=== PATIENT | male | born 1935 | race Caucasian/White ===

== ENCOUNTER 2018-10-05 17:34 | Emergency (ER) | payer OTHER ==
[~2018-10-05] VITALS: Ht 193 cm; Wt 94.3 kg
[~2018-10-05 17:34] MED LIST: ASPI325B; ASPI500; ATOR10; ATOR40TA; CLOP75; FISH1000; IBUP200; LISI10; LISI20; OMEP20ER PO; RAMI2.5; VYTORIN; [UNRECOGNIZED DRUG - OTHER]
== END 2018-10-05 17:50 | disposition home or self-care (01) ==
LOC: ER 17:34
DX: M67.431 Ganglion, right wrist (principal); Z88.5 Allergy status to narcotic agent; Z79.02 Long term (current) use of antithrombotics/antiplatelets; Z79.82 Long term (current) use of aspirin; Z79.899 Other long term (current) drug therapy
CPT/HCPCS: 99282

== ENCOUNTER → 2018-10-22 | Outpatient (CLI) | payer OTHER | END | disposition home or self-care (01) | LOC: LAB EV 16:33 → LAB SHORT 16:33 | DX: M25.531 Pain in right wrist (principal) | CPT/HCPCS: 87070; 87075; 87205 ==

== ENCOUNTER 2020-11-04 11:49 | Inpatient (IN) | payer OTHER ==
[~2020-11-04] VITALS: Ht 190.5 cm; Wt 87.5 kg
[~2020-11-04 11:49] MED LIST changes: -ASPI325B; +ASPIR 8181 M1 PO; +FISH OIL 1,0001 EAC9 PO; -FISH1000
[2020-11-04] MEDS ORDERED: Zocor40 MG PO (11:59)
[2020-11-04] MEDS ORDERED: DOXA2 PO (12:00)
[2020-11-04] MEDS ORDERED: FINA5 PO ×2 (12:00→18:33)
[2020-11-04] MEDS ORDERED: PRED20 PO ×2 (12:00→18:33)
[2020-11-04] MEDS ORDERED: AZIT500 PO ×2 (12:01→18:32)
[2020-11-04 12:44] LABS: Hematocrit 37.2 % (37.0-53.0); Hemoglobin 12.5 g/dL (13.5-17.5); Mean Corpuscular HGB Conc 33.6 g/dL (31.5-36.5); Mean Corpuscular Volume 89 fL (80-100); RDW Coefficient Variation 14.2 % (11.7-14.2); RDW Standard Deviation 46.1 fL (35.1-46.3); Red Blood Cell Count 4.16 M/mm3 (4.30-5.90); White Blood Cell Count 9.89 K/mm3 (4.00-11.30)
[2020-11-04 12:48] LABS: Alanine Aminotransfer (ALT/SGP 24 U/L (12-78); Albumin, Blood 2.5 g/dL (3.4-5.0); Albumin/Globulin Ratio 0.7 (0.8-1.8); Alk Phos 64 U/L (50-136); Anion Gap 7 mmol/L (6-16); Aspartate Aminotrans (AST/SGOT 45 U/L (12-37); Blood Urea Nitrogen 21 mg/dL (8-24); CO2, Blood 25 mmol/L (21-32); Calcium, Blood 8.6 mg/dL (8.5-10.1); Chloride, Blood 109 mmol/L (98-108); Creatinine, Blood 0.75 mg/dL (0.60-1.20); Globulin, Blood 3.8 g/dL (2.2-4.0); Glomerular Filtration Rate >60 (60-); Glucose, Blood 97 mg/dL (70-99); Sodium, Blood 141 mmol/L (136-145); Total Protein, Blood 6.3 g/dL (6.4-8.2); Troponin I <0.015 ng/mL (0.000-0.040)
[2020-11-04 12:58] LABS: Mean Platelet Volume 10.3 fL (9.1-12.4); Platelet Count 200 K/mm3 (150-400)
[2020-11-04 13:19] LABS: BAND PERCENT MAN 1 % (0-8); BASOPHILS PERCENT MAN 0 % (0-2); EOSINOPHILS PERCENT MAN 0 % (0-6); LYMPHOCYTES ABSOLUTE MAN 0.19 K/mm3 (0.84-5.20); LYMPHOCYTES PERCENT MAN 2 % (21-46); MONOCYTES ABSOLUTE MAN 0.29 K/mm3 (0.16-1.47); MONOCYTES PERCENT MAN 3 % (4-13); NEUTROPHILS ABSOLUTE MAN 9.39 K/mm3 (1.96-9.15); SEG NEUTROPHILS PERCENT MAN 94 % (41-73); TOTAL CELLS COUNTED 100
[2020-11-04] MEDS ORDERED: DOXAZOSIN MESYLA2 MG PO (15:08)
[2020-11-04] MEDS ORDERED: Simvastatin40 MG PO (15:08)
[2020-11-04] MEDS ORDERED: Zithromax Tri-500 MG (15:14)
[2020-11-04 15:26] LABS: Source, Urine Voided
[2020-11-04 15:29] LABS: Appearance, Urine Clear (Clear); Bilirubin, Urine Neg (Neg); Blood, Urine 3+ (Neg); Color, Urine Amber (P-Yellow); Glucose Qualitative, Urine Neg (Neg); Ketones, Urine Neg (Neg); Leukocyte Esterase, Urine Neg (Neg); Nitrite, Urine Neg (Neg); Protein, Urine 2+ (Neg); Urobilinogen, Urine NORM (Normal); pH, Urine 6.5 (5.0-8.0)
[2020-11-04 15:48] LABS: Bacteria Few /hpf; Squamous Epithelial Cells Few /hpf (Few)
[2020-11-04 15:49] LABS: Mucus Light (0-Heavy)
--- NOTE | 2020-11-04 18:35 | NUR ---
PT IS LYING IN BED SAT 93% ON 4L 02. EXTREMELY [place]. USES WHITEBOARD AND POINTING TO COMMUNICATE, MAY ASK TO TRY AND READ LIPS. DENIES PAIN. WILL CONT. TO MONITOR FOR REMAINDER OF SHIFT.
[2020-11-04 18:52] LABS: Percent Saturation 8.3 % (20.0-50.0)
[2020-11-05 05:39] LABS: BASOPHILS ABSOLUTE AUTO 0.01 K/mm3 (0.00-0.23); BASOPHILS PERCENT AUTO 0 % (0-2); EOSINOPHILS ABSOLUTE AUTO 0.01 K/mm3 (0.00-0.68); EOSINOPHILS PERCENT AUTO 0 % (0-6); Hematocrit 34.4 % (37.0-53.0); Hemoglobin 11.3 g/dL (13.5-17.5); Mean Corpuscular HGB Conc 32.8 g/dL (31.5-36.5); Mean Corpuscular Volume 91 fL (80-100); RDW Coefficient Variation 14.2 % (11.7-14.2); RDW Standard Deviation 47.8 fL (35.1-46.3); Red Blood Cell Count 3.77 M/mm3 (4.30-5.90); White Blood Cell Count 7.13 K/mm3 (4.00-11.30)
[2020-11-05 05:45] LABS: IMMATURE GRAN ABSOLUTE AUTO 0.06 K/mm3 (0.00-0.10); IMMATURE GRAN PERCENT AUTO 1 % (0-1); LYMPHOCYTES ABSOLUTE AUTO 0.54 K/mm3 (0.84-5.20); LYMPHOCYTES PERCENT AUTO 8 % (21-46); MONOCYTES ABSOLUTE AUTO 0.49 K/mm3 (0.16-1.47); MONOCYTES PERCENT AUTO 7 % (4-13); Mean Platelet Volume 10.3 fL (9.1-12.4); NEUTROPHILS ABSOLUTE AUTO 6.02 K/mm3 (1.96-9.15); NEUTROPHILS PERCENT AUTO 85 % (41-73); Platelet Count 211 K/mm3 (150-400)
--- NOTE | 2020-11-05 05:46 | NUR ---
NO ACUTE CHANGES OR SIGNIFICANT EVENTS OCCURRED OVERNIGHT. OXYGEN ON 4LITERS VIA NASAL CANNULA -MAINITAING O2 SATS GREATER THAN 92%. NO SIGNS OF ANY VISIBLE DISTRESS PRESENT. DENIES PAIN. DENIES NAUSEA.
[2020-11-05 06:01] LABS: Alanine Aminotransfer (ALT/SGP 16 U/L (12-78); Albumin, Blood 2.1 g/dL (3.4-5.0); Albumin/Globulin Ratio 0.6 (0.8-1.8); Alk Phos 58 U/L (50-136); Anion Gap 6 mmol/L (6-16); Aspartate Aminotrans (AST/SGOT 38 U/L (12-37); Bilirubin, Total 0.9 mg/dL (0.1-1.0); Blood Urea Nitrogen 19 mg/dL (8-24); Bun/Creatinine Ratio 27.3 (12.0-20.0); CO2, Blood 25 mmol/L (21-32); Chloride, Blood 111 mmol/L (98-108); Globulin, Blood 3.4 g/dL (2.2-4.0); Glomerular Filtration Rate >60 (60-); Glucose, Blood 105 mg/dL (70-99); Sodium, Blood 142 mmol/L (136-145); Total Protein, Blood 5.5 g/dL (6.4-8.2)
[2020-11-05 10:04] LABS: Adenovirus Not Detected (NOT DETECT); Coronavirus 229E Not Detected (NOT DETECT); Coronavirus HKU1 Not Detected (NOT DETECT); Coronavirus NL63 Not Detected (NOT DETECT); Coronavirus OC43 Not Detected (NOT DETECT); SARS-Cov-2 (COVID-19), BioFire Detected (NOT DETECT)
[2020-11-05 10:06] LABS: Bordetella pertussis Not Detected (NOT DETECT); Chlamydophila pneumoniae Not Detected (NOT DETECT); Human Metapneumovirus Not Detected (NOT DETECT); Human Rhinovirus/Enterovirus Not Detected (NOT DETECT); Influenza A/2009-H1 Not Detected (NOT DETECT); Influenza A/H1 Not Detected (NOT DETECT); Influenza A/H3 Not Detected (NOT DETECT); Influenza B Not Detected (NOT DETECT); Mycoplasma pneumoniae Not Detected (NOT DETECT); Parainfluenza Virus 1 Not Detected (NOT DETECT); Parainfluenza Virus 2 Not Detected (NOT DETECT); Parainfluenza Virus 3 Not Detected (NOT DETECT); Parainfluenza Virus 4 Not Detected (NOT DETECT); Respiratory Syncytial Virus Not Detected (NOT DETECT)
--- NOTE | 2020-11-05 17:14 | NUR ---
SHIFT SUMMARY THE PATIENT IS ALERT AND ORIENTED, AND COOPERATIVE WITH CARE. THE PATIENT IS VERY HARD OF HEARING. THIS NURSE BROUGHT A DRY ERASE BOARD INTO THE ROOM TO BETTER COMMUNICATE WITH THE PATIENT. THE PATIENT WAS ABLE TO ANSWER THE WRITTEN QUESTIONS. THE PATIENT IS ON 4 LITERS O2 VIA NASAL CANNULA HIGH FLOW, SATTING IN THE 90'S. RESPIRATORY WAS CALLED FOR A BREATHING TREATMENT THIS SHIFT. NO ACUTE CHANGES, VSS.
[2020-11-06 04:59] LABS: Base Excess Venous -3.4 mmol/L; Bicarbonate Venous 21.8 mmol/L (24.0-30.0); PCO2 Venous 38.5 mmHg (38-42); PO2 Venous 79.9 mmHg (38-42); pH Blood Venous 7.37 (7.34-7.37)
[2020-11-06 05:16] LABS: Anion Gap 11 mmol/L (6-16); Blood Urea Nitrogen 27 mg/dL (8-24); Bun/Creatinine Ratio 31.8 (12.0-20.0); CO2, Blood 22 mmol/L (21-32); Calcium, Blood 8.8 mg/dL (8.5-10.1); Chloride, Blood 110 mmol/L (98-108); Creatinine, Blood 0.85 mg/dL (0.60-1.20); Glomerular Filtration Rate >60 (60-); Glucose, Blood 103 mg/dL (70-99); Potassium, Blood 4.1 mmol/L (3.5-5.5); Sodium, Blood 143 mmol/L (136-145)
--- NOTE | 2020-11-06 07:13 | NUR ---
PATIENT SUMMARY PATIET IS ALERT AND ORIENTED X3-4, FORGETFUL AT TIMES. VS STABLE FOR PATIENT ON 4L NC. PATIENT TAKES OFF O2 AT TIMES. REINFORCED EDUCATION REGARDING OXYGEN. PATIENT DESATS TO 70s WITHOUT OXYGEN AND ACTIVITY. PATIENT AMBULATED TO THE RESTROOM MULTIPLE TIMES LAST NIGHT. REINFORCED EDUCATION FOR SAFETY. MILD COMPLAINT OF SHORTNESS OF BREATH. VS OTHERWISE STABLE. ALL CARES COMPLETED AND MEDICATIONS GIVEN ORDERED ACCORDING TO NURSING JUDGEMENT. ALL UNFINISHED CARES ENDORSED TO ONCOMING SHIFT. FREQUENT ROUNDS FOR SAFETY. 6PS ADDRESSED.
--- NOTE | 2020-11-06 17:59 | NUR ---
SHIFT SUMMARY THE PATIENT'S O2 NEEDS WENT UP THIS SHIFT. THE PATIENT IS ON 10LPM ON NASAL CANNULA HIGH FLOW. THE PATIENT HAS BEEN SATTING ABOVE 90%, AND IS LYING ON THEIR SIDE IN BED. THERE IS A CONTINUOUS BIOX IN USE AT THIS TIME. VSS, CALL LIGHT WITHIN REACH.
--- NOTE | 2020-11-07 05:16 | NUR ---
PATIENT SUMMARY PATIENT IS ALERT AND ORIENTED X4. INCREASED O2 TO 15L ON A NRB MY SHIFT. REINFORCED EDUCATION ON IMPORTANCE OF KEEPING OXYGEN IN PLACE. WHEN OXYGEN IS REMOVED PATIENTs O2 SATURATION ON RA IS 70S. WHEN OXYGEN MASK IS ON O2 SATURATION IS >92%. PATIENT COMPLAINED OF COUGH MY SHIFT. GAVE COUGH MEDICINE x2 COUGHING DROPPS PATIENT'S 02 SATURATION. VS OTHERWISE STABLE. PATIENT WAS MORE RESTLESS MY SHIFT. TRIED TO POSITION PATIENT FOR COMFORT. cARE COMPLETED AND MEDICATION GIVEN ORDERED ACCORDING TO NURSING JUDGEMENT. aLL UNFINISHED CARES ENDORSED TO ONCOMING RN. eNCOURAGED PATIENT TO INCREASE ACTIVITY TOLERATED AND TO GET PLENTY OF REST.
[2020-11-07 05:32] LABS: Free Thyroxine 1.63 ng/dL (0.70-1.60); Thyroid Stimulating Hormone 0.473 uIU/mL (0.360-4.800)
--- NOTE | 2020-11-07 13:00 | NUR ---
PATIENT SITTING ON OPPOSITE SIDE OF BED THAT HE WAS ON THIS A.M. IV POLE OVER BED. BLOOD ON BED, FLOOR AND IV POLE. ROOM AND PATIENT CLEANED. ABLE TO SAVE IV. IV WRAPPED AND SALINE LOCKED. PATIENT CONFUSED. DID NOT WANT ANYONE TO TOUCH IV. STS " THERE IS GLASS ON FLOOR AND I HAVE BARE FEET." NO GLASS ON FLOOR. POOR APPETITE. WCTM
--- NOTE | 2020-11-07 13:54 | NUR ---
REPORT GIVEN TO RM [id number] RN. DAUGHTER, ZOILA, NUMBER GIVEN TO RN. PATIENT TRANSFERRED VIA RECLINER.
--- NOTE | 2020-11-07 16:10 | NUR ---
SHIFT SUMMARY PATIENT TRANSFERRED FROM [facility]. PATIENT SETTLED INTO ROOM. PATIENT ON 15L OXIMIZER. PATIENT MAINTAINING SATURATIONS ABOVE 92%. PATIENT IS ON CAMERA DUE TO HIGH FALL RISK AND BEING IMPULSIVE. PATIENT REDIRECTABLE. PATIENT IS VERY [place], WHITE BOARD USED TO COMMUNICATE. PATIENT IS FORGETFUL AT TIMES. DAUGHTER ZOILA CALLED AND UPDATE GIVEN. PATIENT IS A ONE PERSON ASSIST. PATIENT EATING AND DRINKING POORLY, BUT DRANK AN ENSURE. PATIENT IS PLEASANT AND COOPERATIVE WITH CARE.
--- NOTE | 2020-11-07 21:00 | NUR ---
WAS ASSISED TO BED PER SAFF. O2 PER OXYMIZER AT 15L/MIN. HARD OF HEARING. HOB ELEVATED FOR RESP COMFORT. ON REMOTE CAMERA MONITORING. CALL LIGHT IN REACH.
--- NOTE | 2020-11-07 23:42 | NUR ---
ALTHOUGH ON OXYMIZER 15L/MIN, CONTINUES TO DESATINTO LOW 80'S. RT NOTIFIED AND STATED WILL SET UP A NON REBREATHER ASA HE MAY BE A "MOUTH BREATHER". SEE RT DOCUMENTATION. CALL LIGHT IN REACH. ISOLATION PRECAUTIONS MAINTAINED.
--- NOTE | 2020-11-08 00:01 | NUR ---
RT ASSESSED AND APPLIED NON REBREATHER, CURRENT O2 SATS 91%. RESTING QUIETLY. CALL LIGHT IN REACH
--- NOTE | 2020-11-08 00:51 | NUR ---
CONTINUED TO REMOVE NON REBREATHER, O2. DESATING INTO THE 70'. BECAME VERY AGITATED WHEN NURSE TRIED TO REAPPLY NON REBREATHER. BECAME THREATENING. CALL PLACED TO MD, ORDER FOR BILAT WRIST RESTRAINTS OBTAINED AND APPLIED. CALL LIGHT IN REACH. O2 SATS 91%. ISOLATION PRECAUTIONS MAINTAINED
--- NOTE | 2020-11-08 03:19 | NUR ---
BARREL RAISER SUMMARY WAS ASSISTED TO BED AT HS FROM CHAIR WITH 02 PER OXYMIZER AT 15 L/MIN OF 02. HOB WAS ELEVATED FOR COMFORT, THEN NOTED O2 SATS DECREASING TO LOW 80'S. PT WAS OBSERVED TO BE TAKING OFF HIS OXYMIZER, MULTIPLE ATTEMPTS TO PUT IT BACK ON, ONLY INCREASED HIS SATS TO MID 80'S. RT NOTIFIED, AND RT PLACED NON REBEATHER ON. SATS INCREASED TO 90'S. THEN LATER WAS AGAIN NOTED TO BE REMOVING HIS O2 MASK. MULTIPLE ATTEMPTS TO REAPPLY MASK ONLY SEEMED TO GET PT MORE AGITATED. CALL PLACED TO DELICIA RIOS WRIST SOFT RESTRAINTS ORDERED AND APPLIED. PT AWAKE AT MOST OF SHIFT, CALLING OUT, CUSSING. AGITATED. WHILE MSK REMAINS ON, SATS 90'S. ISOLATION PRECAUTIONS MAINTAINED. CALL LIGHT IN REACH.
--- NOTE | 2020-11-08 04:06 | NUR ---
CONTINUES TO SCREAM, HR INCREASED TO 100'S AND WOULD NOT REDIRCT. CALL PLACED TO LEIGHA RIOS IV ORDERED. (SEE MAR FOR DETAILS). MED GIVEN. WILL CONTINUE TO MONITOR FOR SAFETY. ALL LIGHT IN REACH
[2020-11-08 05:12] LABS: Hematocrit 38.2 % (37.0-53.0); Hemoglobin 12.7 g/dL (13.5-17.5); Mean Corpuscular HGB 29.7 pg (26.0-34.0); Mean Corpuscular HGB Conc 33.2 g/dL (31.5-36.5); Mean Corpuscular Volume 89 fL (80-100); Mean Platelet Volume 9.5 fL (9.1-12.4); Platelet Count 181 K/mm3 (150-400); RDW Coefficient Variation 14.3 % (11.7-14.2); Red Blood Cell Count 4.28 M/mm3 (4.30-5.90); White Blood Cell Count 12.07 K/mm3 (4.00-11.30)
[2020-11-08 05:34] LABS: Anion Gap 6 mmol/L (6-16); Blood Urea Nitrogen 36 mg/dL (8-24); Bun/Creatinine Ratio 38.4 (12.0-20.0); CO2, Blood 24 mmol/L (21-32); Calcium, Blood 8.7 mg/dL (8.5-10.1); Chloride, Blood 115 mmol/L (98-108); Creatinine, Blood 0.94 mg/dL (0.60-1.20); Glomerular Filtration Rate >60 (60-); Glucose, Blood 124 mg/dL (70-99); Potassium, Blood 3.4 mmol/L (3.5-5.5); Sodium, Blood 145 mmol/L (136-145)
--- NOTE | 2020-11-08 16:22 | NUR ---
SHIFT SUMMARY PATIENT DENIES PAIN AND NAUSEA. PATIENT IN BILAT SOFT RESTRAINTS. PATIENT IS VISIBLY SHORT OF BREATH, RESPIRATIONS AT 42 THIS MORNING. PATIENT CONTINUED TO TAKE OXYGEN OFF AND OXYGEN SENSOR OFF. PATIENT DESATURATED TO 70%, PATIENT PLACED ON 15L NRB AND 15L OXIMIZER. PATIENT WOULD NOT KEEP IT ON AND SATURATING AT 88%. DR. GREEN CALLED, NEW ORDERS FOR ONE TIME ZYPREXA IM. PATIENT CONTINUED TO PULL AT TUBING AND LINES. PATIENT PLACED ON BIPAP. NEW ORDERS FOR IV ATIVAN 1-2MG Q2 PRN. RESTRAINTS DISCONTINUED. PATIENT TOLERATING BIPAP AFTER ATIVAN IS GIVEN. PATIENT SATURATING AT 99%. RESPIRATIONS IN THE 30S. BIPAP SET AT 14/6. FIO2 AT 80%. DAUGHTER VISITED IN AFTERNOON PER DR. GREEN REQUEST. CODE STATUS CHANGED TO DNR.
--- NOTE | 2020-11-08 22:41 | NUR ---
RECEIVED PATIENT IN BED SEDATED. RESP UNLABORED ON BIPAP SATURATING AT 97% HR 68-72. PER OFFGOING RN, PATIENT WAS MEDICATED FOR AGITATION. SAFETY MEASURES MAINTAINED. BED ALARM EXIT ON. WILL CONTINUE TO MONITOR. NO CHANGES IN STATUS NOTED.
--- NOTE | 2020-11-09 00:34 | NUR ---
PATIENT BECAME AGITATED AND RESTLESS. ATTEMPTS TO REMOVE BIPAP. MORPHINE PRN GIVEN WITH GOOD EFFECT. O2 SAT 96%. HR 78. ADLS GIVEN. CHANGED AND REPOSITIONED FOR COMFORT.
--- NOTE | 2020-11-09 02:27 | NUR ---
PATIENT BECAME VERY AGITATED. TOOK OF BIPAP AND ATTEMPTED TO GET OUT OF BED. PATIENT BECAME TACHY ON MONITOR HR 150. O2 SAT DROPPED TO 85. ATIVAN 2 MG IV GIVEN. PATIENT IS CALMER NOW. O2 SAT 93 ON BIPAP. HR 85. TURNED AND REPOSITIONED PATIENT FOR COMFORT. WILL CONTINUE TO MONITOR.
--- NOTE | 2020-11-09 04:45 | NUR ---
PATIENT BECAME AGITATED AND ATTEMPTED TO GET OUT OF BED. UNABLE TO FOLLOW COMMANDS. COMBATIVE WHEN REDIRECTED. MORPHINE 2MG IV GIVEN PRN FOR AGITATION. TURNED AND REPOSITIONED FOR COMFORT. ADLS GIVEN. O2 SAT 96% ON BIPAP. HR 66.
--- NOTE | 2020-11-09 04:56 | NUR ---
PATIENT HAS BEEN AGITATED THROUGHOUT THE NIGHT. NEEDED FREQUENT REDIRECTIONS. PATIENT ATTEMPTED TO GET OUT OF BED AND REMOVED BIPAP AT TIMES. MEDICATED NEEDED FOR AGITATION. VSS. O2 SAT 96% ON BIPAP. HR 61. TURNED AND REPOSITIONED FOR COMFORT. ADLS GIVEN. BED ALARM EXIT ON. FREQUENT ROUNDS IN PROGRESS.
[2020-11-09 05:00] LABS: Hematocrit 34.9 % (37.0-53.0); Hemoglobin 11.4 g/dL (13.5-17.5); Mean Corpuscular HGB 29.8 pg (26.0-34.0); Mean Corpuscular HGB Conc 32.7 g/dL (31.5-36.5); Mean Corpuscular Volume 91 fL (80-100); Mean Platelet Volume 9.8 fL (9.1-12.4); Platelet Count 136 K/mm3 (150-400); RDW Coefficient Variation 14.5 % (11.7-14.2); RDW Standard Deviation 48.3 fL (35.1-46.3); Red Blood Cell Count 3.83 M/mm3 (4.30-5.90); White Blood Cell Count 10.62 K/mm3 (4.00-11.30)
[2020-11-09 05:28] LABS: Alanine Aminotransfer (ALT/SGP 22 U/L (12-78); Albumin, Blood 1.8 g/dL (3.4-5.0); Albumin/Globulin Ratio 0.5 (0.8-1.8); Alk Phos 74 U/L (50-136); Anion Gap 6 mmol/L (6-16); Aspartate Aminotrans (AST/SGOT 36 U/L (12-37); Bilirubin, Total 0.9 mg/dL (0.1-1.0); Blood Urea Nitrogen 41 mg/dL (8-24); Bun/Creatinine Ratio 46.6 (12.0-20.0); CO2, Blood 26 mmol/L (21-32); Calcium, Blood 8.5 mg/dL (8.5-10.1); Chloride, Blood 118 mmol/L (98-108); Creatinine, Blood 0.88 mg/dL (0.60-1.20); Globulin, Blood 3.7 g/dL (2.2-4.0); Glomerular Filtration Rate >60 (60-); Glucose, Blood 126 mg/dL (70-99); Potassium, Blood 3.7 mmol/L (3.5-5.5); Sodium, Blood 150 mmol/L (136-145); Total Protein, Blood 5.5 g/dL (6.4-8.2)
--- NOTE | 2020-11-09 19:07 | NUR ---
changed 02 down to 70 from 80 because 02% oximeter showed 97%+ for most of the am, talked to rt and he suggested reduction, 02 stayed up do reduced to 60 but oximeter dropped to to 90-94% so brought the 0xygen up to 70% oximeter has stayed between 93 - 97%, pt agiation has not increased but he did have a run of increased heart rate for less than two minutes, no increase in agitation noted during shift, report shared with returning noc nurse, remains on bipap, saline locked and call light in reach
--- NOTE | 2020-11-09 22:46 | NUR ---
PATIENT WAS AGITATED. ATTEMPTED TO REMOVE BIPAP. BECAME COMBATIVE. MEDICATED WITH MORPHINE PRN WITH GOOD EFFECT. SATURATING AT 96%. NO RESP DISTRESS NOTED.
--- NOTE | 2020-11-10 01:04 | NUR ---
PATIENT IS AGITATED, RESTLESS, ATTEMPTS TO REMOVE BIPAP. ATIVAN PRN GIVEN. WILL CONTINUE TO MONITOR. O2 SAT 96%.
--- NOTE | 2020-11-10 03:10 | NUR ---
RECEIVED PT IN BED ASLEEP BUT RESTLESS AND AGITATED UPON AROUSAL. MADE MULTIPLE ATTEMPTS TO REMOVE BIPAP. ON TELE SR WITH PAC. SAT 97%. MEDICATED PRN FOR AGITATION WITH GOOD EFFECT. IVF INFUSING. VSS. TURNED AND REPOSITIONED FOR COMFORT. WILL CONTINUE TO MONITOR.
--- NOTE | 2020-11-10 05:17 | NUR ---
PT IS AGITATED, RESTLESS, REMOVING BIPAP. MORPHINE PRN GIVEN. SAT 97%.
[2020-11-10 05:57] LABS: Hematocrit 38.3 % (37.0-53.0); Hemoglobin 12.2 g/dL (13.5-17.5); Mean Corpuscular HGB 29.9 pg (26.0-34.0); Mean Corpuscular HGB Conc 31.9 g/dL (31.5-36.5); Mean Corpuscular Volume 94 fL (80-100); Mean Platelet Volume 10.3 fL (9.1-12.4); Platelet Count 128 K/mm3 (150-400); RDW Coefficient Variation 14.6 % (11.7-14.2); RDW Standard Deviation 50.4 fL (35.1-46.3); Red Blood Cell Count 4.08 M/mm3 (4.30-5.90); White Blood Cell Count 10.49 K/mm3 (4.00-11.30)
[2020-11-10 06:15] LABS: Alanine Aminotransfer (ALT/SGP 21 U/L (12-78); Albumin, Blood 1.8 g/dL (3.4-5.0); Albumin/Globulin Ratio 0.4 (0.8-1.8); Alk Phos 77 U/L (50-136); Anion Gap 5 mmol/L (6-16); Aspartate Aminotrans (AST/SGOT 37 U/L (12-37); Bilirubin, Total 0.9 mg/dL (0.1-1.0); Blood Urea Nitrogen 39 mg/dL (8-24); Bun/Creatinine Ratio 43.7 (12.0-20.0); CO2, Blood 26 mmol/L (21-32); Calcium, Blood 8.4 mg/dL (8.5-10.1); Chloride, Blood 119 mmol/L (98-108); Creatinine, Blood 0.89 mg/dL (0.60-1.20); Glomerular Filtration Rate >60 (60-); Glucose, Blood 96 mg/dL (70-99); Potassium, Blood 4.1 mmol/L (3.5-5.5); Sodium, Blood 150 mmol/L (136-145); Total Protein, Blood 5.8 g/dL (6.4-8.2)
--- NOTE | 2020-11-10 18:14 | NUR ---
review of pt with family. They are coming in tonight to see him and have his son in law speak with him as pt is very hard of hearing and can hear his voice better than anyone. Pt continues to need increased sedation to tolerate bipap. Will continue to monitor reviewed prognosis with family. IF no improvement will approach comfort care as pt high risk of suffering if he declines further.
--- NOTE | 2020-11-10 19:09 | NUR ---
SHIFT SUMMARY THE PATIENT BECAME AGITATED WHILE CHANGING POSITIONS. ATIVAN WAS GIVEN PATIENT'S FAMILY CAME TO SEE THEM THIS EVENING. PALLIATIVE CARE HAS BEEN CONSULTED AND FURTHER CARE FOR THE PATIENT HAS BEEN DISCUSSED. THE PATIENT HAS BEEN TAKEN OFF A BIPAP AND PUT ON A HEATED HIGH FLOW CANNULA 55% LPM AT 75% FIO2. SATS ARE STABLE AT 93% SPO2 HEART RATE AT 72.
[2020-11-10 19:21] LABS: Magnesium, Blood 2.5 mg/dL (1.6-2.4)
[2020-11-10 19:22] LABS: Phosphorus, Blood 3.2 mg/dL (2.5-4.9)
[2020-11-10 20:00] LABS: Anion Gap 7 mmol/L (6-16); Blood Urea Nitrogen 35 mg/dL (8-24); Bun/Creatinine Ratio 44.4 (12.0-20.0); CO2, Blood 23 mmol/L (21-32); Calcium, Blood 8.2 mg/dL (8.5-10.1); Chloride, Blood 117 mmol/L (98-108); Creatinine, Blood 0.79 mg/dL (0.60-1.20); Glomerular Filtration Rate >60 (60-); Glucose, Blood 113 mg/dL (70-99); Potassium, Blood 4.1 mmol/L (3.5-5.5); Sodium, Blood 147 mmol/L (136-145)
--- NOTE | 2020-11-10 22:34 | NUR ---
RECEIVED PATIENT IN BED RESTLESS AND AGITATED. MEDICATED WITH MORPHINE PRN. O2 SAT DROPPED TO 80%. O2 ADJUSTED BY RT. REPOSITIONED PATIENT FOR COMFORT. WILL CONTINUE TO MONITOR.
--- NOTE | 2020-11-11 00:20 | NUR ---
PATIENT REMAINED AGITATED, RESTLESS, ANXIOUS. ATIVAN 2MG IV GIVEN. REPOSITIONED FOR COMFORT. SATURATING AT 92%. ADLS PROVIDED.
--- NOTE | 2020-11-11 02:05 | NUR ---
PATIENT IS RESTLESS AND AGITATED. MORPHINE PRN GIVEN. COMFORT MEASURES PROVIDED. WILL CONTINUE TO MONITOR.
--- NOTE | 2020-11-11 02:57 | NUR ---
PATIENT DESAT TO 80% WITH LABORED RESPIRATION. RT NOTIFIED. PATIENT WAS PLACED BACK ON BIPAP BY RT. RESIING IN BED WITH NO DISTRESS. CONTINUE TO MONITOR.
--- NOTE | 2020-11-11 03:17 | NUR ---
RECEIVED PATIENT IN BED ON HIGH FLOW O2. PATIENT WAS AGITATED AT TIMES AND MEDICATED WITH GOOD EFFECT. PATIENT BECAME TACHYPNEIC WITH O2 SAT DROPPING BELOW 80. RT WAS CALLED AND PLACED PATIENT ON BIPAP. SAT 99-100%. ON TELE SR WITH PACs. TURNED AND REPOSITIONED FOR COMFORT. ADLS PROVIDED. SAFETY MEASURES IN PLACE.
--- NOTE | 2020-11-11 11:22 | NUR ---
SPOKE TO PATIENT'S DOCTOR REGARDING THE PATIENT'S ELEVATED HEART RATE. THE PLAN IS TO START THE PATIENT ON SOME METOPROLOL AND NOTIFY THE PATIENT'S FAMILY.
--- NOTE | 2020-11-11 14:29 | NUR ---
pt declining, multiple calls from family they want to speak with physician. Palliative RN lisa spoke with pt daughter on prognosis. Physician called and spoke with family plan is to come in the morning with family and withdraw care. called daughter back for theraputic and supportive conversation.
--- NOTE | 2020-11-11 17:34 | NUR ---
SHIFT SUMMARY PATIENT IS BACK ON THE BIPAP OF THIS MORNING. PATIENT'S BEEN SATTING IN THE UPPER 90's THIS SHIFT. SOME OCCASIONAL SPIKES IN THE HEART RATE FROM SINUS TACH 160-180. DR. CHASE WAS NOTIFIED. THE PLAN IS TO MOST LIKELY START COMFORT CARE IN THE AM. THE FAMILY HAS BEEN NOTIFIED AND HAS BEEN PRESENT WITH THEIR CARE.
--- NOTE | 2020-11-11 23:01 | NUR ---
PT ON BIPAP MACHINE SLEEPING, O2 SAT 96%-98%. 2245 PATIENT IS RESTLESS AND AGITATED. ATIVAN 2MG IV ADMINISTERED, PT TOLERATED WELL. PT TURNED AND REPOSITIONED FOR COMFORT. SAFETY MEASURES IN PLACE.
--- NOTE | 2020-11-12 04:08 | NUR ---
0317 PATIENT RESTLESS AND AGITATED IN BED. MORPHINE 0.2MG PRN ADMINISTERED PER EMAR WITH GOOD EFFECTS. WILL CONTINUE TO MONITOR PATIENT.
--- NOTE | 2020-11-12 04:27 | NUR ---
RECEIVED PATIENT IN BED ON BIPAP MACHINE. PATIENT IS SLEEPING. O2 SAT 96%-98%. PATIENT IS RESTLESS AND AGITATED AT TIMES. PRN MEDICATIONS ADMINISTERED PER EMAR. PATIENT TOLERATED WELL, PATIENT TURNED AND REPOSITIONED FOR COMFORT. ADLS PROVIDED, SAFETY MEASURES IN PLACE. WILL CONTINUE TO MONITOR.
--- NOTE | 2020-11-12 05:03 | NUR ---
0445 PATIENT WAS RESTLESS AND AGITATED DURING ADLS. HR INCREASED TO 160B PM . ATIVAN 2MG PRN ADMINISTERED PER EMAR. PATIENT TOLERATED WELL. HR STABLE AND WNL.
--- NOTE | 2020-11-12 16:08 | NUR ---
PT PLACED ON CC THIS SHIFT @ APPROX 1530. FAMILY PRESENT @ THIS TIME. BiPAP REMOVED PER FAMILY WISHES. ATIVAN AND MORPHINE PROVIDED TO MAKE PT AND FAMILY MORE COMFORTABLE. ASSESSED PT FOR HEARTBEAT, NO HEARTBEAT NOTED. [facility] CALLED @ 1402. PROVIDER NOTIFIED @ THIS TIME. FAMILY STATES [facility] IS THERE PREFERRED MORTUARY. FAMILY WISHES TO BE CONTACTED ONCE PT HAS BEEN PICKED UP AND TAKEN TO MORTUARY. CHARGE NURSE NOTIFIED @ THIS TIME WELL.
--- NOTE | 2020-11-12 17:40 | NUR ---
PT TRANSPORTED @ APPROX 1735 BY [facility] FROM [facility], FAMILY INFORMED BY RN. HOME MEDS LEFT HERE, DAUGHTER REQUESTED MEDS BE DISCARDED OF APPROPRIATELY.
== END 2020-11-12 17:28 | DRG 871 ==
LOC: ER 11:49 → MEDS 16:13
PROVIDERS: Emergency Medicine; Internal Medicine; ADMIT Hospitalist
PROC: 3E0333Z Introduction of Anti-inflammatory into Peripheral Vein, Percutaneous Approach (ICD-10-PCS; principal; 2020-11-04)
PROC: XW033E5 Introduction of Remdesivir Anti-infective into Peripheral Vein, Percutaneous Approach, New Technology Group 5 (ICD-10-PCS; 2020-11-04)
PROC: 8E0ZXY6 Isolation (ICD-10-PCS; 2020-11-04)
PROC: 5A0935A Assistance with Respiratory Ventilation, Less than 24 Consecutive Hours, High Flow/Velocity Cannula (ICD-10-PCS; 2020-11-04)
PROC: 5A09457 Assistance with Respiratory Ventilation, 24-96 Consecutive Hours, Continuous Positive Airway Pressure (ICD-10-PCS; 2020-11-08)
DX: A41.89 Other specified sepsis (principal); U07.1 COVID-19; J96.01 Acute respiratory failure with hypoxia; J12.82 Pneumonia due to coronavirus disease 2019; E87.0 Hyperosmolality and hypernatremia; G93.1 Anoxic brain damage, not elsewhere classified; E44.0 Moderate protein-calorie malnutrition; Z68.1 Body mass index [BMI] 19.9 or less, adult; I25.10 Atherosclerotic heart disease of native coronary artery without angina pectoris; I25.2 Old myocardial infarction; Z66 Do not resuscitate; Z51.5 Encounter for palliative care; I10 Essential (primary) hypertension; R65.20 Severe sepsis without septic shock; F03.90 Unspecified dementia, unspecified severity, without behavioral disturbance, psychotic disturbance, mood disturbance, and anxiety; N40.0 Benign prostatic hyperplasia without lower urinary tract symptoms; D64.9 Anemia, unspecified; Z88.5 Allergy status to narcotic agent; Z79.899 Other long term (current) drug therapy; Z79.82 Long term (current) use of aspirin; E86.0 Dehydration; Z95.5 Presence of coronary angioplasty implant and graft; E78.5 Hyperlipidemia, unspecified; Z78.1 Physical restraint status
CPT/HCPCS: 0202U; 36415; 70450; 71045; 80048; 80053; 81001; 82607; 82728; 82746; 82803; 82947; 83540; 83550; 83735; 83880; 84100; 84439; 84443; 84484; 85025; 85027; 85379; 86140; 86141; 87426; 94640; 94660; 94762; 96361; 96365; 96375; 99285-25; A9270; C9803; J1100; J1630; J1650; J2060; J2270; J7030; J7120